=== PATIENT | male | born 1985 | race Caucasian/White ===

== ENCOUNTER 2018-06-26 14:39 | Inpatient (IN) | payer MEDICAID, SELFPAY ==
[2018-06-26 14:59] VITALS: BMI 28.0; BMI 28.1
[2018-06-26 15:29] VITALS: BP 147/98; PULSE 93; RESP 16; TEMP 36.7; O2SAT 100
[2018-06-26 15:38] LABS: Absolute Lymphocyte Count 2.86 X10^3/ul (0.83-4.51); Absolute Neutrophil Count 7.2 X10^3/uL (2.0-7.7); Basophil# 0.02 X10^3/uL; Basophil% 0.2 % (0-1); Eosinophil# 0.06 X10^3/uL; Eosinophils% 0.5 % (0-5); Hematocrit 46.9 % (40-54); Hemoglobin 16.8 g/dl (13.0-16.5); Lymphocyte # 2.86 X10^3/ul (4.0); Lymphocyte % 26.2 % (19-41); Mean Corp Hgb Conc 35.8 g/gl (32-36); Mean Corpuscular Hgb 31.2 pg (27.0-32.0); Mean Platelet Vol. 10.4 fl (6.2-12.0); Monocyte# 0.69 X10^3/uL; Monocyte% 6.3 % (0-10); Neutrophil # 7.23 X10^3/uL (2.7-7.7); Neutrophil % 66.3 % (47-70); Platelet Count 183 K/mm3 (150-450); RBC Distribution Width CV 12.4 % (11.6-14.6); RBC Distribution Width SD 39.3 fl (35.1-43.9); Red Blood Count 5.39 M/mm3 (4.6-6.2); White Blood Count 10.9 K/mm3 (4.4-11.0)
[2018-06-26 15:39] LABS: POSITIVE COUNT NO; POSITIVE DIFFERENTIAL NO; POSITIVE MORPHOLOGY NO
[2018-06-26 15:47] LABS: ALB/GLOB Ratio 1.2 RATIO (0.9-2.4); AST(SGOT) 21 U/L (15-37); Alanine Aminotransfer ALT/SGPT 33 U/L (16-61); Albumin, Serum 4.6 g/dL (3.2-5.0); Alkaline Phosphatase 91 U/L (45-117); Anion Gap 9 (5-15); BUN 17 mg/dL (7-18); BUN/Creat Ratio 13.3 RATIO (10-20); Calcium,Total 9.5 mg/dL (8.5-10.1); Chloride 102 mmol/L (98-107); Creatinine, Serum 1.28 mg/dL (0.70-1.30); EST Glomerular Filtration Rate 69 mL/min (>60); Est Glom Filt Rate - Afr Amer 84 mL/min (>60); Estimated Creatinine Clearance 96.33 ml/min; Globulin 3.8 g/dL (2.2-4.2); Glucose 74 mg/dL (74-106); Magnesium 2.5 mg/dL (1.6-2.6); Potassium 3.3 mmol/L (3.5-5.1); Protein, Total 8.4 g/dL (6.4-8.2); Sodium Level 141 mmol/L (136-145)
[2018-06-26] MEDS: Buprenorphine HCl 2 MG TAB.SUBL SL ×2 (15:54→23:11)
[2018-06-26 16:00] VITALS: BP 147/98; PULSE 93; RESP 18; TEMP 36.7
[2018-06-26 16:01] VITALS: PULSE 74
[2018-06-26 17:54] VITALS: BP 136/76; PULSE 94; RESP 16; TEMP 36.6
[2018-06-26 19:56] VITALS: BP 137/108; PULSE 100; RESP 16; TEMP 36.4
--- NOTE | 2018-06-26 20:23 | PCM.HP.STD ---
Problem List (1) Opioid withdrawal Status: Acute History of Present Illness Date of Admission: 06/26/18 Chief Complaint: opioid withdrawal 32 year old male who admits to opioid abuse with fentanyl. States that he snorts about 1/2 gram daily. Occasionally uses cannabis and LSD as well. Presented to [facility] from where he was admitted. Currently experiencing withdrawal symptoms of diaphoresis, yawning, joint aches and pains, malaise and cravings, jitters. States he wants to get sober and get his life back together and start a new job. Has mild abdominal cramps and mild nausea Past Medical History Allergies No Known Allergies Allergy (Verified 06/26/18 15:23) Home Medications: Ambulatory Orders Medication Instructions Recorded Clonazepam [Klonopin] 1 mg PO TID 06/26/18 Dextroamphetamine/Amphetamine 30 mg PO BID 06/26/18 [Adderall 30 mg Tablet] Ketoconazole [Nizoral] 1 applicatio TOPICAL DAILY 06/26/18 Testosterone Cypionate 50 mg IM Q14D 06/26/18 [Depo-Testosterone] Psychiatric History: Anxiety, Attn. deficit disorder Smoking Status: Current every day smoker Tobacco Use: Cigarettes Drugs: Marijuana, - - fentanyl Review of Systems Constitutional: Reports: Chills, Night Sweats, Malaise, Fatigue Eyes: Denies: Blurred vision HEENT: Denies: Difficulty Hearing, Difficulty Swallowing, Dysphasia Respiratory: Denies: Cough, Hemoptysis Gastrointestinal: Reports: Abdominal Pain, Nausea. Denies: Hematemesis Genitourinary: Denies: Dysuria, Frequency Musculoskeletal: Reports: Muscle pain. Denies: Back Pain, Joint stiffness Skin: Denies: Dryness Neurological: Denies: Balance problems, Double vision Psychiatric: Reports: Anxiety, Depression Endocrine: Denies: Change in Body Habitus Hematologic/ Lymphatic: Denies: Petechiae VTE Information - Inpt Only VTE Present on Admission: No Patient Problems: Active and Suspected Problems Opioid withdrawal (Acute) - Physical Exam General: Alert, Oriented x3, Cooperative - in distress, restless and agitated HEENT: Atraumatic, PERRLA Oral: Moist Mucosa, No Gingival or Mucosal Lesions/ Ulcerations Neck: Supple, No JVD, Negative Carotid Bruits Lungs: Clear to auscultation, Normal air movement, No rhonchi Cardiovascular: Regular rate, Regular Rhythm, Normal S1, Normal S2, No murmurs Abdomen: Bowel Sounds Present, Soft, Non Tender, Non-Distended, No Hepato-splenomegaly Extremities: No clubbing, No cyanosis, No edema, Capillary Refill Less than 3 Seconds Skin: No rashes, No breakdown Musculoskeletal: No Tenderness to Palpation of Joints or Extremities, No Muscle Wasting, Arthritic Changes Lymphatic: No Cervical, Supraclavicular, or Inguinal Adenopathy Neurological: Cranial nerves II-XII grossly intact, Neuro grossly intact, Motor Exam 5/5 strength throughout Psych/Mental Status: Agitated, Anxious, Restless Vital Signs Temp Pulse Resp BP Pulse Ox 97.5 F L 100 16 137/108 H 100 06/26/18 19:56 06/26/18 19:56 06/26/18 19:56 06/26/18 19:56 06/26/18 15:29 Oxygen Delivery Method Room Air Weight: 99.337 kg Body Mass Index (BMI) 28.0 Intake and Output for Last 24 Hours 06/24/18 06/25/18 06/26/18 23:59 23:59 23:59 Intake Total 250 / 250 Balance 250 / 250 Laboratory Tests Past 24 Hrs 06/26/18 06/26/18 15:23 15:23 WBC 10.9 RBC 5.39 Hgb 16.8 H Hct 46.9 MCV 87.0 MCH 31.2 MCHC 35.8 RDW 12.4 RDW Differential 39.3 Plt Count 183 MPV 10.4 Immature Gran % (Auto) 0.500 Neut % (Auto) 66.3 Lymph % (Auto) 26.2 Wood % (Auto) 6.3 Eos % (Auto) 0.5 Baso % (Auto) 0.2 Absolute Neuts (auto) 7.2 Absolute Lymphs (auto) 2.86 Total Counted Not Reportable Sodium 141 Potassium 3.3 L Chloride 102 Carbon Dioxide 30.0 Anion Gap 9 BUN 17 Creatinine 1.28 Estim Creat Clear Calc 96.33 Est GFR (MDRD) Af Amer 84 Est GFR (MDRD) Non-Af 69 BUN/Creatinine Ratio 13.3 Glucose 74 Calcium 9.5 Magnesium 2.5 Total Bilirubin 1.20 H AST 21 ALT 33 Alkaline Phosphatase 91 Total Protein 8.4 H Albumin 4.6 Globulin 3.8 Albumin/Globulin Ratio 1.2 Assessment/Plan All Active Problems Opioid withdrawal (Acute) 1. Acute opioid withdrawal. Will start on CINA protocol with Buprenorphine and Clonidine. Keep on telemetry for at least 48 hours Consult SW/CM 2. ADHD. Continue medications 3. Anxiety. Continue Klonopin. Code Visit Inpatient E&M: 15087 Init Hosp L3
[2018-06-26] MEDS: clonazePAM 1 MG Tablet PO (21:48)
[2018-06-26 22:00] VITALS: PULSE 114
[2018-06-27] VITALS (9 sets, daily range): BP systolic 124–147; BP diastolic 70–90; PULSE 60–98; RESP 16–18; TEMP 36.3–36.8
[2018-06-27] MEDS: clonazePAM 1 MG Tablet PO ×3 (05:59→23:03)
[2018-06-27] MEDS: Buprenorphine HCl 2 MG TAB.SUBL SL ×3 (08:14→23:03)
[2018-06-27 08:17] LABS: Absolute Lymphocyte Count 2.81 X10^3/ul (0.83-4.51); Absolute Neutrophil Count 5.8 X10^3/uL (2.0-7.7); Basophil# 0.02 X10^3/uL; Basophil% 0.2 % (0-1); Eosinophil# 0.19 X10^3/uL; Hematocrit 44.9 % (40-54); Hemoglobin 15.8 g/dl (13.0-16.5); Lymphocyte # 2.81 X10^3/ul (4.0); Lymphocyte % 29.5 % (19-41); Mean Corp Hgb Conc 35.2 g/gl (32-36); Mean Corpuscular Hgb 30.7 pg (27.0-32.0); Mean Corpuscular Volume 87.2 fL (80-94); Mean Platelet Vol. 10.5 fl (6.2-12.0); Monocyte# 0.69 X10^3/uL; Monocyte% 7.2 % (0-10); Neutrophil # 5.76 X10^3/uL (2.7-7.7); Neutrophil % 60.6 % (47-70); Platelet Count 160 K/mm3 (150-450); RBC Distribution Width CV 12.7 % (11.6-14.6); Red Blood Count 5.15 M/mm3 (4.6-6.2); White Blood Count 9.5 K/mm3 (4.4-11.0)
[2018-06-27 08:30] LABS: Anion Gap 5 (5-15); BUN 15 mg/dL (7-18); BUN/Creat Ratio 14.7 RATIO (10-20); Calcium,Total 8.8 mg/dL (8.5-10.1); Chloride 104 mmol/L (98-107); Creatinine, Serum 1.02 mg/dL (0.70-1.30); EST Glomerular Filtration Rate 90 mL/min (>60); Est Glom Filt Rate - Afr Amer 109 mL/min (>60); Estimated Creatinine Clearance 120.88 ml/min; Glucose 98 mg/dL (74-106); Potassium 4.1 mmol/L (3.5-5.1); Sodium Level 141 mmol/L (136-145)
[2018-06-27 08:33] LABS: POSITIVE COUNT NO; POSITIVE DIFFERENTIAL NO; POSITIVE MORPHOLOGY NO
--- NOTE | 2018-06-27 10:07 | PCM.PN.HOSP ---
Patient Problems: Active and Suspected Problems Opioid withdrawal (Acute) Subjective: Patient seen and examined. He was admitted [address] [facility] for detox from opiates namely fentanyl. He also uses cannabis and LSD as well. Opiate withdrawal with buprenorphine and clonidine protocols. Patient seen and examined. He felt well and had no complaints. He denied any fever or chills, cough or chest pain, any shortness of breath, any belly pain, any diarrhea vomiting. Review of systems is otherwise negative. Vitals/I&O's: Vital Signs Temp Pulse Resp BP Pulse Ox 98.3 F 60 16 124/79 H 100 06/27/18 04:23 06/27/18 05:46 06/27/18 04:23 06/27/18 04:23 06/26/18 15:29 Oxygen Delivery Method Room Air Weight: 219 lb Body Mass Index (BMI) 28.0 Intake and Output for Last 24 Hours 06/25/18 06/26/18 06/27/18 23:59 23:59 23:59 Intake Total 250 / 250 960 / 960 Balance 250 / 250 960 / 960 General: Alert, Oriented x3, Cooperative, No apparent distress HEENT: Atraumatic, PERRLA, EOMI, Normocephalic Oral: Moist Mucosa Neck: Supple, No JVD, Negative Carotid Bruits Lungs: Clear to auscultation, Normal air movement, No rhonchi, No wheeze, No rales Cardiovascular: Regular rate, Regular Rhythm, Normal S1, Normal S2, No murmurs Abdomen: Bowel Sounds Present, Soft, Non Tender, Non-Distended, No Hepato-splenomegaly Extremities: No clubbing, No cyanosis, No edema, Capillary Refill Less than 3 Seconds Skin: No rashes, No breakdown Musculoskeletal: No Tenderness to Palpation of Joints or Extremities Lymphatic: No Cervical, Supraclavicular, or Inguinal Adenopathy Neurological: Cranial nerves II-XII grossly intact, Motor Exam 5/5 strength throughout Psych/Mental Status: Normal Affect, Appropriate, Alert and oriented to time, place, person, mood and affect Laboratory Results 06/26/18 15:23: WBC 10.9, RBC 5.39, Hgb 16.8 H, Hct 46.9, MCV 87.0, MCH 31.2, MCHC 35.8, RDW 12.4, RDW Differential 39.3, Plt Count 183, MPV 10.4, Immature Gran % (Auto) 0.500, Neut % (Auto) 66.3, Lymph % (Auto) 26.2, Parmer % (Auto) 6.3, Eos % (Auto) 0.5, Baso % (Auto) 0.2, Absolute Neuts (auto) 7.2, Absolute Lymphs (auto) 2.86, Total Counted Not Reportable 06/26/18 15:23: Sodium 141, Potassium 3.3 L, Chloride 102, Carbon Dioxide 30.0, Anion Gap 9, BUN 17, Creatinine 1.28, Estim Creat Clear Calc 96.33, Est GFR (MDRD) Af Amer 84, Est GFR (MDRD) Non-Af 69, BUN/Creatinine Ratio 13.3, Glucose 74, Calcium 9.5, Magnesium 2.5, Total Bilirubin 1.20 H, AST 21, ALT 33, Alkaline Phosphatase 91, Total Protein 8.4 H, Albumin 4.6, Globulin 3.8, Albumin/Globulin Ratio 1.2 06/27/18 07:54: WBC 9.5, RBC 5.15, Hgb 15.8, Hct 44.9, MCV 87.2, MCH 30.7, MCHC 35.2, RDW 12.7, RDW Differential 40.0, Plt Count 160, MPV 10.5, Immature Gran % (Auto) 0.500, Neut % (Auto) 60.6, Lymph % (Auto) 29.5, Parmer % (Auto) 7.2, Eos % (Auto) 2.0, Baso % (Auto) 0.2, Absolute Neuts (auto) 5.8, Absolute Lymphs (auto) 2.81, Total Counted Not Reportable 06/27/18 07:54: Sodium 141, Potassium 4.1, Chloride 104, Carbon Dioxide 32.0, Anion Gap 5, BUN 15, Creatinine 1.02, Estim Creat Clear Calc 120.88, Est GFR (MDRD) Af Amer 109, Est GFR (MDRD) Non-Af 90, BUN/Creatinine Ratio 14.7, Glucose 98, Calcium 8.8 Current Medications Acetaminophen (Tylenol) 650 mg PO Q6H PRN PRN PRN Reason: Mild Pain (1-3)/Temp > 100.7 F Buprenorphine HCl (Buprenorphine Hcl) 4 mg SL Q8H [facility] PRN Reason: Taper Stop: 06/29/18 19:59 Last Admin: 06/27/18 08:14 Dose: 4 mg Clonazepam (Klonopin) 1 mg PO TID [facility] Last Admin: 06/27/18 05:59 Dose: 1 mg Clonidine (Catapres) 0.1 mg PO Q2H PRN PRN PRN Reason: Hot/Cold Sweats or Anxiety Dicyclomine HCl (Bentyl) 20 mg PO Q6H PRN PRN PRN Reason: Abdomnial Discomfort Hydroxyzine Pamoate (Vistaril Pamoate Capsule) 50 mg PO Q6H PRN PRN PRN Reason: Mild Anxiety Magnesium Hydroxide (Milk Of Magnesia) 30 ml PO DAILY PRN PRN PRN Reason: Constipation Non-Formulary Medication (Dextroamphetamine/Amphetamine) 30 mg PO BID [facility] Ondansetron HCl (Zofran) 4 mg IV Q8H PRN PRN PRN Reason: NAUSEA Medical Necessity - Tobacco Use Smoking Status: Current every day smoker Tobacco Use: Cigarettes Assessment/Plan All Active Problems Opioid withdrawal (Acute) 1. Acute opiate withdrawal snorts fentanyl on opiate withdrawal protocol with buprenorphine monitor CINA score 2. ADHD: on Adderrall 3. Anxiety: on Klonopin DVT prophylaxis: encourage ambulation Code Visit Inpatient E&M: 44761 Subs Hosp L2
--- NOTE | 2018-06-27 10:11 | PN_ITS ---
Patient Problems: Active and Suspected Problems Opioid withdrawal (Acute) Subjective: Patient seen and examined. He was admitted [address] [facility] for detox from opiates namely fentanyl. He also uses cannabis and LSD as well. Opiate withdrawal with buprenorphine and clonidine protocols. Patient seen and examined. He felt well and had no complaints. He denied any fever or chills, cough or chest pain, any shortness of breath, any belly pain, any diarrhea vomiting. Review of systems is otherwise negative. Vitals/I&O's: Vital Signs Temp Pulse Resp BP Pulse Ox 98.3 F 60 16 124/79 H 100 06/27/18 04:23 06/27/18 05:46 06/27/18 04:23 06/27/18 04:23 06/26/18 15:29 Oxygen Delivery Method Room Air Weight: 219 lb Body Mass Index (BMI) 28.0 Intake and Output for Last 24 Hours 06/25/18 06/26/18 06/27/18 23:59 23:59 23:59 Intake Total 250 / 250 960 / 960 Balance 250 / 250 960 / 960 General: Alert, Oriented x3, Cooperative, No apparent distress HEENT: Atraumatic, PERRLA, EOMI, Normocephalic Oral: Moist Mucosa Neck: Supple, No JVD, Negative Carotid Bruits Lungs: Clear to auscultation, Normal air movement, No rhonchi, No wheeze, No rales Cardiovascular: Regular rate, Regular Rhythm, Normal S1, Normal S2, No murmurs Abdomen: Bowel Sounds Present, Soft, Non Tender, Non-Distended, No Hepato- splenomegaly Extremities: No clubbing, No cyanosis, No edema, Capillary Refill Less than 3 Seconds Skin: No rashes, No breakdown Musculoskeletal: No Tenderness to Palpation of Joints or Extremities Lymphatic: No Cervical, Supraclavicular, or Inguinal Adenopathy Neurological: Cranial nerves II-XII grossly intact, Motor Exam 5/5 strength throughout Psych/Mental Status: Normal Affect, Appropriate, Alert and oriented to time, place, person, mood and affect Laboratory Results 06/26/18 15:23: WBC 10.9, RBC 5.39, Hgb 16.8 H, Hct 46.9, MCV 87.0, MCH 31.2, MCHC 35.8, RDW 12.4, RDW Differential 39.3, Plt Count 183, MPV 10.4, Immature Gran % (Auto) 0.500, Neut % (Auto) 66.3, Lymph % (Auto) 26.2, Cotton % (Auto) 6.3 , Eos % (Auto) 0.5, Baso % (Auto) 0.2, Absolute Neuts (auto) 7.2, Absolute Lymphs (auto) 2.86, Total Counted Not Reportable 06/26/18 15:23: Sodium 141, Potassium 3.3 L, Chloride 102, Carbon Dioxide 30.0, Anion Gap 9, BUN 17, Creatinine 1.28, Estim Creat Clear Calc 96.33, Est GFR ( MDRD) Af Amer 84, Est GFR (MDRD) Non-Af 69, BUN/Creatinine Ratio 13.3, Glucose 74, Calcium 9.5, Magnesium 2.5, Total Bilirubin 1.20 H, AST 21, ALT 33, Alkaline Phosphatase 91, Total Protein 8.4 H, Albumin 4.6, Globulin 3.8, Albumin /Globulin Ratio 1.2 06/27/18 07:54: WBC 9.5, RBC 5.15, Hgb 15.8, Hct 44.9, MCV 87.2, MCH 30.7, MCHC 35.2, RDW 12.7, RDW Differential 40.0, Plt Count 160, MPV 10.5, Immature Gran % (Auto) 0.500, Neut % (Auto) 60.6, Lymph % (Auto) 29.5, Cotton % (Auto) 7.2, Eos % (Auto) 2.0, Baso % (Auto) 0.2, Absolute Neuts (auto) 5.8, Absolute Lymphs (auto ) 2.81, Total Counted Not Reportable 06/27/18 07:54: Sodium 141, Potassium 4.1, Chloride 104, Carbon Dioxide 32.0, Anion Gap 5, BUN 15, Creatinine 1.02, Estim Creat Clear Calc 120.88, Est GFR ( MDRD) Af Amer 109, Est GFR (MDRD) Non-Af 90, BUN/Creatinine Ratio 14.7, Glucose 98, Calcium 8.8 Current Medications Acetaminophen (Tylenol) 650 mg PO Q6H PRN PRN PRN Reason: Mild Pain (1-3)/Temp > 100.7 F Buprenorphine HCl (Buprenorphine Hcl) 4 mg SL Q8H [facility] PRN Reason: Taper Stop: 06/29/18 19:59 Last Admin: 06/27/18 08:14 Dose: 4 mg Clonazepam (Klonopin) 1 mg PO TID [facility] Last Admin: 06/27/18 05:59 Dose: 1 mg Clonidine (Catapres) 0.1 mg PO Q2H PRN PRN PRN Reason: Hot/Cold Sweats or Anxiety Dicyclomine HCl (Bentyl) 20 mg PO Q6H PRN PRN PRN Reason: Abdomnial Discomfort Hydroxyzine Pamoate (Vistaril Pamoate Capsule) 50 mg PO Q6H PRN PRN PRN Reason: Mild Anxiety Magnesium Hydroxide (Milk Of Magnesia) 30 ml PO DAILY PRN PRN PRN Reason: Constipation Non-Formulary Medication (Dextroamphetamine/Amphetamine) 30 mg PO BID [facility] Ondansetron HCl (Zofran) 4 mg IV Q8H PRN PRN PRN Reason: NAUSEA Medical Necessity - Tobacco Use Smoking Status: Current every day smoker Tobacco Use: Cigarettes Assessment/Plan All Active Problems Opioid withdrawal (Acute) 1. Acute opiate withdrawal * snorts fentanyl * on opiate withdrawal protocol with buprenorphine * monitor CINA score * 2. ADHD: on Adderrall 3. Anxiety: on Klonopin DVT prophylaxis: encourage ambulation Code Visit Inpatient E&M: 38378 Subs Hosp L2
[2018-06-28 02:00] VITALS: RESP 16
[2018-06-28 06:00] VITALS: RESP 16
[2018-06-28] MEDS: clonazePAM 1 MG Tablet PO ×3 (06:24→22:00)
[2018-06-28 09:21] VITALS: BP 126/69; PULSE 58; RESP 16; TEMP 36.8
[2018-06-28] MEDS: Buprenorphine HCl 2 MG TAB.SUBL SL ×2 (09:28→20:33)
--- NOTE | 2018-06-28 11:27 | PCM.PN.HOSP ---
Patient Problems: Active and Suspected Problems Opioid withdrawal (Acute) Subjective: Patient seen and examined. He has no complaints this morning. Feels well. He denies any fever chills, any cough chest pain, shortness of breath, abdominal pain, diarrhea vomiting. Review of systems otherwise negative. Vitals/I&O's: Vital Signs Temp Pulse Resp BP Pulse Ox 98.2 F 58 L 16 126/69 H 100 06/28/18 09:21 06/28/18 09:21 06/28/18 09:21 06/28/18 09:21 06/26/18 15:29 Oxygen Delivery Method Room Air Weight: 219 lb Body Mass Index (BMI) 28.0 Intake and Output for Last 24 Hours 06/26/18 06/27/18 06/28/18 23:59 23:59 23:59 Intake Total 250 / 250 3660 / 3660 1400 / 1400 Balance 250 / 250 3660 / 3660 1400 / 1400 General: Alert, Oriented x3, Cooperative HEENT: Atraumatic, PERRLA, EOMI, Normocephalic Oral: Moist Mucosa Neck: Supple, No JVD, Negative Carotid Bruits, Negative Hepatojugular Reflux, No Nodes Lungs: Clear to auscultation, Normal air movement, No rhonchi, No wheeze, No rales Cardiovascular: Regular rate, Regular Rhythm, Normal S1, Normal S2, No murmurs Abdomen: Bowel Sounds Present, Soft, Non Tender, Non-Distended, No Hepato-splenomegaly Extremities: No clubbing, No cyanosis, No edema, Capillary Refill Less than 3 Seconds Skin: No rashes, No breakdown Musculoskeletal: No Tenderness to Palpation of Joints or Extremities Lymphatic: No Cervical, Supraclavicular, or Inguinal Adenopathy Neurological: Cranial nerves II-XII grossly intact, Motor Exam 5/5 strength throughout Psych/Mental Status: Normal Affect, Appropriate, Alert and oriented to time, place, person, mood and affect Current Medications Acetaminophen (Tylenol) 650 mg PO Q6H PRN PRN PRN Reason: Mild Pain (1-3)/Temp > 100.7 F Buprenorphine HCl (Buprenorphine Hcl) 2 mg SL Q12H [facility] PRN Reason: Taper Stop: 06/29/18 19:59 Last Admin: 06/28/18 09:28 Dose: 2 mg Clonazepam (Klonopin) 1 mg PO TID [facility] Last Admin: 06/28/18 06:24 Dose: 1 mg Clonidine (Catapres) 0.1 mg PO Q2H PRN PRN PRN Reason: Hot/Cold Sweats or Anxiety Dicyclomine HCl (Bentyl) 20 mg PO Q6H PRN PRN PRN Reason: Abdomnial Discomfort Hydroxyzine Pamoate (Vistaril Pamoate Capsule) 50 mg PO Q6H PRN PRN PRN Reason: Mild Anxiety Magnesium Hydroxide (Milk Of Magnesia) 30 ml PO DAILY PRN PRN PRN Reason: Constipation Non-Formulary Medication (Dextroamphetamine/Amphetamine) 30 mg PO BID [facility] Ondansetron HCl (Zofran) 4 mg IV Q8H PRN PRN PRN Reason: NAUSEA Medical Necessity - Tobacco Use Smoking Status: Current every day smoker Tobacco Use: Cigarettes Assessment/Plan All Active Problems Opioid withdrawal (Acute) 1. Acute opiate withdrawal snorts fentanyl on opiate withdrawal protocol with buprenorphine-today is day 2 monitor CINA score 2. ADHD: on Adderrall 3. Anxiety: on Klonopin DVT prophylaxis: encourage ambulation Disposition: Informed by [facility] coordinator that patient's father states he does not want him back in the house. Arrangements be made for alternate accommodation for patient. For likely discharge tomorrow. Code Visit Inpatient E&M: 78718 Subs Hosp L2
[2018-06-28 14:33] VITALS: BP 131/74; PULSE 57; RESP 16; TEMP 36.8
--- NOTE | 2018-06-28 16:59 | CHAPLAIN ---
Type of Pastoral Visit _x__ Initial Visit ___ Follow-up Visit ___ On-call Visit ___ General Patient Visit ___ Spiritual Assessment ___ Family Conference ___ Bereavement ___ Rapid Response ___ Code Blue ___ Other (describe below) Pastoral Care Referral From _x__ Patient ___ Family ___ Nurse ___ Physician ___ Block Making Machine Operator ___ Process Design Chemical Engineer ___ Other (describe below) Sacrament/Intervention _x__ Active listening ___ Anointing ___ Orthodoxy ___ Bereavement ___ Communion ___ Marsha exploration ___ _x__ Life review _x__ Prayer ___ Reconciliation ___ Sacrament of Sick ___ Supportive presence ___ Wedding ___ Other (describe below) Pastoral Comments
[2018-06-28 20:31] VITALS: BP 133/70; PULSE 64; RESP 16; TEMP 37.1
[2018-06-29 06:00] VITALS: BP 135/87; PULSE 61; RESP 16; TEMP 36.4
[2018-06-29] MEDS: clonazePAM 1 MG Tablet PO (06:30)
[2018-06-29 08:03] VITALS: BP 125/74; PULSE 65; RESP 18; TEMP 36.9; O2SAT 97
[2018-06-29] MEDS: Buprenorphine HCl 2 MG TAB.SUBL SL (08:04)
--- NOTE | 2018-06-29 08:44 | DCINST_ITS ---
- Discharge Diagnoses Current Active Problems: Current Active and Chronic Problems Opioid withdrawal (Acute) You will use the following diet at home:: No restrictions Your food should be the consistency of: Regular Your liquids should be the consistency of: Regular/Thin Discharge Activity: Return to Normal Activity May resume sexual activity in: No Restrictions Weight Bearing Status: Weight bearing as tolerated Allergies/Adverse Reactions: Allergies No Known Allergies Allergy (Verified 06/26/18 15:23) Medications to take at Discharge Clonazepam [Klonopin] 1 mg PO TID 06/26/18 Dextroamphetamine/Amphetamine [Adderall 30 mg Tablet] 30 mg PO BID 06/26/18 Ketoconazole [Nizoral] 1 applicatio TOPICAL DAILY 06/26/18 Testosterone Cypionate [Depo-Testosterone] 50 mg IM Q14D 06/26/18 Primary Care Physician: Care Physician,No Primary [Primary Care Provider] - Please follow up with your Primary Care Physician in: 1-2 weeks Test Results: Test results from this visit will be discussed in further detail at your follow- up appointment, if applicable. Proposed Discharge Date: 06/29/18
--- NOTE | 2018-06-29 08:44 | PCM.DC.SUM ---
Discharge Date and Diagnosis - Problem List Patient Problems: Active and Suspected Problems Opioid withdrawal (Acute) Date of Admission: 06/26/18 Date of Discharge: 06/29/18 - Primary Discharge Diagnosis Active and Suspected Problems Opioid withdrawal (Acute) Hospital Course and Treatment Imaging Results: none Operations: None Procedures: None Summary of Care Provided: The patient is a 32 year old M with a history of opiate abuse was admitted for the [facility] program but 8 what 18 to opiate detox. He has fentanyl and states is not about half a gram daily. He occasionally also uses, Naprosyn LSD as well. On admission, he works experiencing withdrawal symptoms of diaphoresis, joint aches and pains, malaise and Cravigs as well as jitters. He was admitted and managed in the [facility] opiate withdrawal protocol with buprenorphine. Patient remained stable and was discharged to [facility] in [place] on 06/30/2018. Patient seen and examined prior to discharge. He had no complaints and felt well. He denied any fever or chills, any cough or shortness of breath, any tremors or anxiety, any abdominal pain, any nausea, any diarrhea vomiting. Review of systems otherwise negative. o/e: Vital Signs Height 6 ft 2 in Weight: 219 lb Weight in Pounds 219.0 lbs Pulse Ox 97 Temperature 98.4 F Pulse Rate 65 Respiratory Rate 18 Blood Pressure 125/74 Blood Pressure Position Semi-Fowlers []General: Alert, Oriented x3, Cooperative HEENT: Atraumatic, PERRLA, EOMI, Normocephalic Oral: Moist Mucosa Neck: Supple, No JVD, Negative Carotid Bruits, Negative Hepatojugular Reflux, No Nodes Lungs: Clear to auscultation, Normal air movement, No rhonchi, No wheeze, No rales Cardiovascular: Regular rate, Regular Rhythm, Normal S1, Normal S2, No murmurs Abdomen: Bowel Sounds Present, Soft, Non Tender, Non-Distended, No Hepato-splenomegaly Extremities: No clubbing, No cyanosis, No edema, Capillary Refill Less than 3 Seconds Skin: No rashes, No breakdown Musculoskeletal: No Tenderness to Palpation of Joints or Extremities Lymphatic: No Cervical, Supraclavicular, or Inguinal Adenopathy Neurological: Cranial nerves II-XII grossly intact, Motor Exam 5/5 strength throughout Psych/Mental Status: Normal Affect, Appropriate, Alert and oriented to time, place, person, mood and affect Plan as stated above. He is to follow-up with his primary care doctor in 1-2 weeks. Discharge Diet: No Restrictions Discharge Activity: Return to Normal Activity May resume sexual activity in: No Restrictions Weight Bearing Status: Weight bearing as tolerated Home Medications: Medications to take at Discharge Clonazepam [Klonopin] 1 mg PO TID 06/26/18 Dextroamphetamine/Amphetamine [Adderall 30 mg Tablet] 30 mg PO BID 06/26/18 Ketoconazole [Nizoral] 1 applicatio TOPICAL DAILY 06/26/18 Testosterone Cypionate [Depo-Testosterone] 50 mg IM Q14D 06/26/18 Primary Care Physician: Care Physician,No Primary [Primary Care Provider] - Please follow up with your Primary Care Physician in: 1-2 weeks Disposition: Home Minutes spent on discharge:: 35 Patient Condition:: Stable Medical Necessity - Tobacco Use Smoking Status: Current every day smoker Tobacco Use: Cigarettes Meaningful Use Info Meaningful Use Diagnoses (Choose all that apply): None applicable Code Visit Inpatient E&M: 33972 Disch Hosp
--- NOTE | 2018-06-29 08:47 | DS.PCM_ITS ---
Discharge Date and Diagnosis - Problem List Patient Problems: Active and Suspected Problems Opioid withdrawal (Acute) Date of Admission: 06/26/18 Date of Discharge: 06/29/18 - Primary Discharge Diagnosis Active and Suspected Problems Opioid withdrawal (Acute) Hospital Course and Treatment Imaging Results: none Operations: None Procedures: None Summary of Care Provided: The patient is a 32 year old M with a history of opiate abuse was admitted for the [facility] program but 8 what 18 to opiate detox. He has fentanyl and states is not about half a gram daily. He occasionally also uses, Naprosyn LSD as well. On admission, he works experiencing withdrawal symptoms of diaphoresis , joint aches and pains, malaise and Cravigs as well as jitters. He was admitted and managed in the [facility] opiate withdrawal protocol with buprenorphine. Patient remained stable and was discharged to [facility] facility in [place] on 06/30/2018. Patient seen and examined prior to discharge. He had no complaints and felt well. He denied any fever or chills, any cough or shortness of breath, any tremors or anxiety, any abdominal pain, any nausea, any diarrhea vomiting. Review of systems otherwise negative. o/e: Vital Signs Height 6 ft 2 in Weight: 219 lb Weight in Pounds 219.0 lbs Pulse Ox 97 Temperature 98.4 F Pulse Rate 65 Respiratory Rate 18 Blood Pressure 125/74 Blood Pressure Position Semi-Fowlers []General: Alert, Oriented x3, Cooperative HEENT: Atraumatic, PERRLA, EOMI, Normocephalic Oral: Moist Mucosa Neck: Supple, No JVD, Negative Carotid Bruits, Negative Hepatojugular Reflux, No Nodes Lungs: Clear to auscultation, Normal air movement, No rhonchi, No wheeze, No rales Cardiovascular: Regular rate, Regular Rhythm, Normal S1, Normal S2, No murmurs Abdomen: Bowel Sounds Present, Soft, Non Tender, Non-Distended, No Hepato- splenomegaly Extremities: No clubbing, No cyanosis, No edema, Capillary Refill Less than 3 Seconds Skin: No rashes, No breakdown Musculoskeletal: No Tenderness to Palpation of Joints or Extremities Lymphatic: No Cervical, Supraclavicular, or Inguinal Adenopathy Neurological: Cranial nerves II-XII grossly intact, Motor Exam 5/5 strength throughout Psych/Mental Status: Normal Affect, Appropriate, Alert and oriented to time, place, person, mood and affect Plan as stated above. He is to follow-up with his primary care doctor in 1-2 weeks. Discharge Diet: No Restrictions Discharge Activity: Return to Normal Activity May resume sexual activity in: No Restrictions Weight Bearing Status: Weight bearing as tolerated Home Medications: Medications to take at Discharge Clonazepam [Klonopin] 1 mg PO TID 06/26/18 Dextroamphetamine/Amphetamine [Adderall 30 mg Tablet] 30 mg PO BID 06/26/18 Ketoconazole [Nizoral] 1 applicatio TOPICAL DAILY 06/26/18 Testosterone Cypionate [Depo-Testosterone] 50 mg IM Q14D 06/26/18 Primary Care Physician: Care Physician,No Primary [Primary Care Provider] - Please follow up with your Primary Care Physician in: 1-2 weeks Disposition: Home Minutes spent on discharge:: 35 Patient Condition:: Stable Medical Necessity - Tobacco Use Smoking Status: Current every day smoker Tobacco Use: Cigarettes Meaningful Use Info Meaningful Use Diagnoses (Choose all that apply): None applicable Code Visit Inpatient E&M: 67979 Disch Hosp
[2018-06-29 10:00] VITALS: BP 125/74; PULSE 65; RESP 18; TEMP 36.9
[2018-06-29 11:05] VITALS: BP 125/74; PULSE 65; RESP 18; TEMP 36.9; O2SAT 97
== END 2018-06-29 11:10 | disposition home or self-care (01) | DRG 435 ==
LOC: MS2 06-27 11:15 → MS3 06-27 17:09
PROVIDERS: Admitting Provider Internal Medicine; Visit Provider Student in an Organized Health Care Education/Training Program
DX: F11.23 Opioid dependence with withdrawal (principal); F90.9 Attention-deficit hyperactivity disorder, unspecified type; F32.9 Major depressive disorder, single episode, unspecified; F41.9 Anxiety disorder, unspecified; F17.210 Nicotine dependence, cigarettes, uncomplicated; Z79.899 Other long term (current) drug therapy
CPT/HCPCS: 36415; 80048; 80053; 83735; 85025; 99406